=== PATIENT | female | born 1955 | race Caucasian/White ===

== ENCOUNTER → 2017-07-31 | Outpatient (CLI) | payer OTHER ==
[~2017-07-31] MED LIST: ACETAMINOPHEN325 M1 PO; LIPITOR20 MG PO; PEPCID40 MG PO; TYLENOL PM PO
== END ==
LOC: RAD 08:44
DX: J98.11 Atelectasis (principal); J90 Pleural effusion, not elsewhere classified; M46.84 Other specified inflammatory spondylopathies, thoracic region; M48.54XA Collapsed vertebra, not elsewhere classified, thoracic region, initial encounter for fracture; Z91.81 History of falling

== ENCOUNTER → 2017-08-07 | Outpatient (CLI) | payer OTHER | LOC: RAD 12:25 | DX: S20.212D Contusion of left front wall of thorax, subsequent encounter (principal); X58.XXXD Exposure to other specified factors, subsequent encounter ==